=== PATIENT | female | born 1995 | race Two or more races ===

== ENCOUNTER 2023-09-20 00:03 | Inpatient (IN) ==
[2023-09-20 00:31] VITALS: BMI 28.5
[2023-09-20 00:39] LABS: AMNISURE ROM TEST NO MEMBRANES RUPTURE (NO RUPTURE)
[2023-09-20 03:09] LABS: BASOPHILS % (AUTO) 0.3 % (0.2-1.0); EOSINOPHILS % (AUTO) 0.2 % (0.9-2.9); HEMATOCRIT 33.8 % (36.0-47.0); LYMPHOCYTES # (AUTO) 1.6 X10^3/uL (1.3-2.9); LYMPHOCYTES % (AUTO) 15.4 % (21.0-51.0); MEAN CORPUSCULAR HGB CONC 32.5 g/dL (33.0-35.0); MEAN CORPUSCULAR VOLUME 79.9 fL (80.0-100.0); MEAN PLATELET VOLUME 8.9 fL (7.4-11.0); MONOCYTES # (AUTO) 0.6 x10^3/uL (0.3-0.8); NEUTROPHILS % (AUTO) 78.1 % (42.0-75.0); PLATELET COUNT 360 X10^3/uL (150.0-450.0); RED BLOOD COUNT 4.23 X10^6/uL (3.5-5.4); RED CELL DISTRIBUTION WIDTH 15.5 % (11.6-16.5); WHITE BLOOD COUNT 10.3 X10^3/uL (3.6-10.0)
[2023-09-20 03:18] LABS: ALANINE AMINOTRANSFERASE 43 Units/L (12-78); ALBUMIN 2.4 g/dL (3.4-5.0); ALKALINE PHOSPHATASE 335 Units/L (46-116); ASPARTATE AMINO TRANSFERASE 32 Units/L (15-37); BLOOD UREA NITROGEN 10 mg/dL (7-18); CALCIUM 8.8 mg/dL (8.5-10.1); CHLORIDE 102 mmol/L (98-107); COR CA(FOR HYPOALB) 10.1 mg/dL (8.5-10.1); CREATININE 0.58 mg/dL (0.55-1.02); GLUCOSE 89 mg/dL (65-99); POTASSIUM 3.8 mmol/L (3.5-5.1); SODIUM 137 mmol/L (136-145); TOTAL PROTEIN 7.1 g/dL (6.4-8.2); eGFR NON BLACK RACES > 60 (>60)
[2023-09-20] MEDS ORDERED: ZOFRAN INJ 4 MG VIAL IVP PRN (03:28)
[2023-09-20] MEDS: LR 1,000 ML IV 1,000 ML IV ONE ×3 (03:50→16:06)
[2023-09-20] MEDS: NUBAIN INJ 20 MG AMP IVP PRN (03:55)
[2023-09-20] MEDS: OXYTOCIN 20 UNIT/1,000 ML-NS 20 UNIT/1,000 ML PLAST..BAG IV PRN (06:00)
[2023-09-20] MEDS: NAROPIN EPIDURAL 0.2% 100 ML ONE (07:37)
[2023-09-20] MEDS: FENTANYL VIAL INJ 100 mcg ONE (07:37)
[2023-09-20] MEDS: PITOCIN ONE (14:32)
[2023-09-20] MEDS ORDERED: AMBIEN PO PRN (15:21)
[2023-09-20] MEDS ORDERED: MOTRIN TAB 800 MG PO PRN (15:21)
[2023-09-20] MEDS: NUBAIN INJ 200 MG VIAL MULTIDOSE ONE (18:10)
[2023-09-20] MEDS: LIDOCAINE 2%-EPI 1:200,000 ONE (18:10)
[2023-09-20] MEDS: LR 1,000 ML IV 1,000 ML IV SCH (18:11)
[2023-09-20] MEDS: PITOCIN IVP ONE (18:11)
[2023-09-20] MEDS: OXYTOCIN 20 UNIT/1,000 ML-NS 20 UNIT/1,000 ML PLAST..BAG IV SCH (18:12)
[2023-09-21] MEDS: MOTRIN TAB 800 MG PO PRN (00:05)
[2023-09-21] MEDS: DERMOPLAST PAIN RELIEF SPRAY TOP PRN (02:26)
[2023-09-21 05:26] LABS: HEMATOCRIT 25.5 % (36.0-47.0)
[2023-09-21 05:49] LABS: HEMOGLOBIN 8.3 g/dL (12.0-16.0)
[2023-09-21] MEDS: PRENATAL PLUS PO SCH (08:30)
[2023-09-21] MEDS: MILK OF MAGNESIA PO PRN (08:32)
[2023-09-21] MEDS ORDERED: NS 100 ML IV 100 ML with VENOFER 400 MG IV ONE (09:05)
[2023-09-22 08:36] VITALS: RESP 18
[2023-09-22] MEDS: ADACEL or BOOSTRIX TDaP VACCINE IM ONE (12:37)
[2023-09-22 15:10] VITALS: BP 120/57; PULSE 78; TEMP 98.9; O2SAT 97
== END 2023-09-22 12:40 | disposition home or self-care (01) | DRG 807 ==
LOC: ER 00:03 → LD 03:29 → MED/SURG 17:40
PROVIDERS: ADMIT Obstetrics & Gynecology Obstetrics; ATTEND Obstetrics & Gynecology Obstetrics
DX: O70.1 Second degree perineal laceration during delivery; O24.419 Gestational diabetes mellitus in pregnancy, unspecified control; Z3A.39 39 weeks gestation of pregnancy; Z37.0 Single live birth